=== PATIENT | female | born 1985 | race African-American/Black ===

== ENCOUNTER 2018-02-21 21:21 | Emergency (ER) | payer OTHER ==
[~2018-02-21] VITALS: Ht 170.2 cm; Wt 104.5 kg
[2018-02-21 23:00] VITALS: BP 142/92
== END 2018-02-21 23:15 | disposition home or self-care (01) ==
LOC: EDSEX 21:22 → EMS 21:22
DX: S01.312A Laceration without foreign body of left ear, initial encounter (principal); S00.81XA Abrasion of other part of head, initial encounter; S60.413A Abrasion of left middle finger, initial encounter; S20.312A Abrasion of left front wall of thorax, initial encounter; F12.90 Cannabis use, unspecified, uncomplicated; Y04.0XXA Assault by unarmed brawl or fight, initial encounter; Y93.89 Activity, other specified; Y92.89 Other specified places as the place of occurrence of the external cause; Y99.8 Other external cause status
CPT/HCPCS: 12011; 12013; 99283

== ENCOUNTER 2018-08-20 16:21 | Emergency (ER) | payer OTHER ==
[~2018-08-20] VITALS: Ht 170.2 cm; Wt 111.4 kg
[2018-08-20 18:51] VITALS: BP 177/122
== END 2018-08-20 19:32 | disposition home or self-care (01) ==
LOC: EMS 16:23
DX: J06.9 Acute upper respiratory infection, unspecified (principal); M25.572 Pain in left ankle and joints of left foot; I10 Essential (primary) hypertension; F12.90 Cannabis use, unspecified, uncomplicated

== ENCOUNTER 2024-04-09 05:08 | Inpatient (IN) | payer BC, OTHER ==
[~2024-04-09] VITALS: Ht 160 cm; Wt 111.4 kg
[2024-04-09] MEDS ORDERED: LEVE-71 PO (05:12)
[2024-04-09] MEDS: LevETIRAcetam 1,000 MG in DEXTROSE 5%-WATER 100 ML IV ONE (05:27)
[2024-04-09 05:52] LABS: BASOPHILS % (AUTO) 0.8 % (0.0-2.0); EOSINOPHILS % (AUTO) 1.6 % (1.0-6.0); HEMATOCRIT 30.2 % (36-46); HEMOGLOBIN 9.6 g/dL (12.0-16.0); LYMPHOCYTES % (AUTO) 22.8 % (22.0-44.0); MEAN CORPUSCULAR HEMOGLOBIN 25.5 pg (26.0-34.0); MEAN CORPUSCULAR HGB CONC 31.8 G/dL (31.0-37.0); MEAN CORPUSCULAR VOLUME 80 fL (80-100); MONOCYTES # (AUTO) 0.2 K/uL (0.1-1.0); MONOCYTES % (AUTO) 5.4 % (2.0-9.0); NEUTROPHILS # (AUTO) 3.2 K/uL (1.8-7.7); NEUTROPHILS % (AUTO) 69.4 % (40.0-70.0); PLATELET COUNT (AUTO) 373 K/uL (150-450); RED BLOOD CELL COUNT(AUTO) 3.77 MIL/uL (4.00-5.20); RED CELL DISTRIBUTION WIDTH 16.7 % (11.5-14.5); WHITE BLOOD COUNT (AUTO) 4.6 K/uL (4.5-11.0)
[2024-04-09 06:00] LABS: ANION GAP 9 mmol/L (8-16); CALCIUM, TOTAL 8.1 mg/dL (8.8-10.5); CARBON DIOXIDE 29 mmol/L (22-29); CHLORIDE 102 mmol/L (98-107); CREATININE 0.88 mg/dL (0.60-1.30); GLOMERULAR FILTR. RATE CALC > 60 mL/min (>60); GLUCOSE,RANDOM 108 mg/dL (70-110); POTASSIUM 3.5 mmol/L (3.5-5.1); SODIUM SERUM 140 mmol/L (136-145); UREA NITROGEN, BLOOD 10 mg/dL (7-18)
[2024-04-09 06:08] LABS: TROPONIN I-HIGH SENSITIVITY 5 ng/L (<51)
[2024-04-09 06:10] LABS: B-TYPE NATRIURETIC PEPTIDE 124 pg/mL (0-100)
[2024-04-09 06:11] LABS: AMPHET/METH SCREEN,URINE NEGATIVE (NEGATIVE); BARBITURATE SCREEN, URINE NEGATIVE (NEGATIVE); BENZODIAZEPINES SCREEN,URINE NEGATIVE (NEGATIVE); CANNABINOID SCREEN,URINE NEGATIVE (NEGATIVE); COCAINE SCREEN,URINE NEGATIVE (NEGATIVE); METHADONE SCREEN, URINE NEGATIVE (NEGATIVE); OPIATE SCREEN,URINE NEGATIVE (NEGATIVE); PHENCYCLIDINE SCREEN,URINE NEGATIVE (NEGATIVE)
[2024-04-09 06:12] LABS: ALCOHOL, URINE DRUG SCREEN NEGATIVE (NEGATIVE)
[2024-04-09 06:13] LABS: ALCOHOL, BLOOD (SERUM) < 3 mg/dL (0-10)
[2024-04-09 06:25] LABS: ALANINE AMINOTRANSFERASE 36 U/L (12-78); ALBUMIN 3.1 g/dL (3.4-5.0); ALKALINE PHOSPHATASE 58 U/L (46-116); ASPARTATE AMINOTRANSFERASE 87 U/L (15-37); BILIRUBIN,TOTAL 0.2 mg/dL (0.1-1.0); CREATINE KINASE, TOTAL ONLY 81 U/L (26-192); TOTAL PROTEIN, SERUM 6.8 g/dL (6.4-8.2)
[2024-04-09] MEDS: FUROSEMIDE 20 MG/2 ML VIAL IVP ONE (08:02)
[2024-04-09 08:23] LABS: COVID AG,FIA SOURCE NASAL SWAB
[2024-04-09 09:00] LABS: SARS-COV2 (COVID) ANTIGEN,FIA Negative (Negative)
[2024-04-09] MEDS: HYDROCHLOROTHIAZIDE 25 MG TABLET PO ONE (09:57)
[2024-04-09] MEDS: LOSARTAN POTASSIUM 50 MG TABLET PO ONE (09:57)
[2024-04-09 10:35] VITALS: BP 177/105; PULSE 76; RESP 21; TEMP 98.1; O2SAT 98
[2024-04-09] MEDS: LABETALOL HCL 5 MG/ML 20 ML VIAL IVP ONE (11:15)
[2024-04-09 12:29] VITALS: BP 158/101
[2024-04-09] MEDS ORDERED: LORazepam 2 MG/ML VIAL IVP PRN (14:45)
[2024-04-09] MEDS ORDERED: ONDANSETRON HCL 4 MG/2 ML VIAL IVP PRN (14:45)
[2024-04-09] MEDS ORDERED: ACETAMINOPHEN 325 MG TABLET PO PRN (14:45)
[2024-04-09] MEDS ORDERED: MAGNESIUM HYDROXIDE SUSPENSION 30 ML UDCUP PO PRN (14:45)
[2024-04-09] MEDS ORDERED: ZOLPIDEM TARTRATE 5 MG TABLET PO PRN (14:45)
[2024-04-09] MEDS ORDERED: CloNIDine HCL 0.1 MG TABLET PO PRN (14:45)
[2024-04-09] MEDS: AmLODIPine BESYLATE 5 MG TABLET PO SCH (15:13)
[2024-04-09 18:22] VITALS: BP 139/97
[2024-04-09] MEDS: LevETIRAcetam 500 MG TABLET PO SCH (20:06)
[2024-04-09 20:07] VITALS: BP 128/79; PULSE 70; RESP 20; TEMP 97.8; O2SAT 99
[2024-04-10 04:39] VITALS: BP 126/79; PULSE 71; RESP 20; TEMP 98; O2SAT 96
[2024-04-10 06:43] LABS: APPEARANCE,URINE CLEAR (CLEAR); BILIRUBIN,URINE NEGATIVE (NEGATIVE); COLOR,URINE COLORLESS (YELLOW); GLUCOSE, URINE (UA) NEGATIVE (NEGATIVE); KETONES,URINE NEGATIVE (NEGATIVE); LEUKOCYTE ESTERASE ,URINE NEGATIVE (NEGATIVE); NITRATE,URINE NEGATIVE (NEGATIVE); OCCULT BLOOD,URINE NEGATIVE (NEGATIVE); PH,URINE 5.5 (5.0-8.0); PROTEIN,URINE NEGATIVE (NEGATIVE); SPECIFIC GRAVITIY, URINE 1.009 (1.003-1.030); UROBILINOGEN,URINE <=1.0 mg/dL (<=1.0)
[2024-04-10 08:00] VITALS: BP 124/73; PULSE 66; RESP 16; TEMP 98.1; O2SAT 100
[2024-04-10] MEDS: FAMOTIDINE 20 MG TABLET PO SCH (08:23)
[2024-04-10] MEDS ORDERED: LEVE-71 PO (11:25)
[2024-04-10] MEDS ORDERED: AMLO-257 PO (11:25)
== END 2024-04-10 13:30 | disposition home or self-care (01) | DRG 101 ==
LOC: EMS 05:09 → EDH 09:05 → 4E 10:11
PROVIDERS: ADMIT Hospitalist; ATTEND Hospitalist
DX: G40.909 Epilepsy, unspecified, not intractable, without status epilepticus (principal); Z68.41 Body mass index [BMI] 40.0-44.9, adult; E66.01 Morbid (severe) obesity due to excess calories; Z20.822 Contact with and (suspected) exposure to COVID-19; I10 Essential (primary) hypertension; D64.9 Anemia, unspecified; E87.70 Fluid overload, unspecified; Z91.199 Patient's noncompliance with other medical treatment and regimen due to unspecified reason
CPT/HCPCS: 71045; 80053; 80307; 81003; 82550; 83880; 84484; 84703; 85025; 93005; 99285; G0378; G0480; J0712; J1940; J3490; J7060; 36415-L1; 36415-TC